=== PATIENT | female | born 1975 | race Two or more races ===

== ENCOUNTER 2017-04-21 14:28 | Emergency (ER) | payer MEDICAID, OTHER ==
[2017-04-21 14:40] VITALS: TEMP 97.5
[2017-04-21] MEDS ORDERED: ONDANSETRON 4 MG/2 ML VIAL IVP ONE (14:44)
[2017-04-21] MEDS ORDERED: NS 1,000 ML IV ONE ×3 (15:15→16:35)
--- NOTE | 2017-04-21 15:45 | EDPHY ---
H & P Stated Complaint: body aches, vomiting Time Seen by Provider: 04/21/17 15:08 HPI/ROS: 41-year-old female presents complaining of headache, nausea and vomiting. She denies abdominal pain. She also states that yesterday she had an exacerbation of her back pain that she has had ever since December of 2015. She states when she gets that pain she often will taken ibuprofen and rest. She also states that she gets headaches approximately once a month, no diagnosis of migraines. She states her only other significant past medical history as a history of anemia, tubal ligation. In the past she has been treated for her anemia with iron supplements. Review of systems As per HPI General no fever no chills no weakness, positive fatigue HEENT no eye pain no eye discharge. No eye redness, no sore throat Respiratory no cough, no shortness of breath Cardiac no chest pain, no peripheral edema GI no abdominal pain, no diarrhea, no constipation, positive nausea positive vomiting no flank pain, no hematuria, no dysuria Musculoskeletal no myalgias, no joint pain Heme no easy bruising, no easy bleeding Endo no polyuria, no polydipsia Skin no rashes, no pruritus Neuro no syncope, no dizziness, positive headaches Psych is no suicidal ideation, no homicidal ideation Source: Patient, Family Exam Limitations: No limitations - Personal History LMP (Females 10-55): 1-7 Days Ago Current Tetanus/Diphtheria Vaccine: Yes - Medical/Surgical History Hx Asthma: No Hx Chronic Respiratory Disease: No Hx Diabetes: No Hx Cardiac Disease: No Hx Renal Disease: No Hx Cirrhosis: No Hx Alcoholism: No Hx HIV/AIDS: No Hx Splenectomy or Spleen Trauma: No Other PMH: Tubal ligation, chronic back pain - Family History Significant Family History: No pertinent family hx - Social History Smoking Status: Never smoked Alcohol Use: None Drug Use: None - Physical Exam Exam: 41-year-old female alert and oriented, nontoxic appearance afebrile Atraumatic normocephalic Extraocular muscles intact, pupils round reactive to light Sclera appear pale Oropharynx negative erythema negative exudate Neck supple Lungs clear to auscultation bilaterally Heart regular rate and rhythm Abdomen nondistended, bowel sounds present, soft, mild suprapubic tenderness, no guarding no rebound no masses Extremities no cyanosis clubbing or edema Neuro alert and oriented, cranial nerves intact, no sensory or motor deficits Gait intact, coordination intact Constitutional: Initial Vital Signs Temperature (C) 36.4 C 04/21/17 14:37 Heart Rate 85 04/21/17 14:37 Respiratory Rate 22 H 04/21/17 14:37 Blood Pressure 134/78 H 04/21/17 14:37 O2 Sat (%) 97 04/21/17 14:37 O2 Delivery Mode Room Air Allergies/Adverse Reactions: morphine Allergy (Verified 04/21/17 14:40) Home Medications: Medication Instructions Recorded NK [No Known Home Meds] 04/21/17 Medical Decision Making ED Course/Re-evaluation: Medical decision making and ER course Patient seen and evaluated for headache vomiting nausea and fatigue of 1 day's duration. IV established Fluids and Zofran initially given Patient has decreased headache but continues to complain of nausea Next given Reglan, Benadryl IV Also given additional IV fluids Labs obtained and sent CBC-WBC 12.9, hemoglobin 10.7 CMP within normal limits Lipase negative TSH within normal limits Differential diagnosis considered Acute gastritis, viral syndrome, migraine, anemia Patient with a past history of anemia although she does not remember her exact hemoglobin levels she says she has been treated with iron for anemia by her primary care physician. Patient's headache and nausea resolved after IV fluids and IV medication, prior to discharge Impression Anemia Gastritis Viral syndrome Plan Discharge home Zofran Up with primary care in 1-2 days Return to emergency if not improving or having worsening of symptoms - Data Points Laboratory Results: Laboratory Results 04/21/17 15:00 04/21/17 15:00 04/21/17 04/21/17 04/21/17 15:00 15:00 15:00 WBC 12.67 10^3/uL H 10^3/uL (3.80-9.50) RBC 4.09 10^6/uL L 10^6/uL (4.18-5.33) Hgb 10.7 g/dL L g/dL (12.6-16.3) Hct 32.9 % L % (38.0-47.0) MCV 80.4 fL L fL (81.5-99.8) MCH 26.2 pg L pg (27.9-34.1) MCHC 32.5 g/dL g/dL (32.4-36.7) RDW 14.5 % % (11.5-15.2) Plt Count 359 10^3/uL 10^3/uL (150-400) MPV 10.9 fL fL (8.7-11.7) Neut % (Auto) 87.5 % H % (39.3-74.2) Lymph % (Auto) 9.4 % L % (15.0-45.0) [place] % (Auto) 2.1 % L % (4.5-13.0) Eos % (Auto) 0.1 % L % (0.6-7.6) Baso % (Auto) 0.4 % % (0.3-1.7) Nucleat RBC Rel Count 0.0 % % (0.0-0.2) Absolute Neuts (auto) 11.09 10^3/uL H 10^3/uL (1.70-6.50) Absolute Lymphs (auto) 1.19 10^3/uL 10^3/uL (1.00-3.00) Absolute Monos (auto) 0.27 10^3/uL L 10^3/uL (0.30-0.80) Absolute Eos (auto) 0.01 10^3/uL L 10^3/uL (0.03-0.40) Absolute Basos (auto) 0.05 10^3/uL 10^3/uL (0.02-0.10) Absolute Nucleated RBC 0.00 10^3/uL 10^3/uL (0-0.01) Immature Gran % 0.5 % % (0.0-1.1) Immature Gran # 0.06 10^3/uL 10^3/uL (0.00-0.10) PT 13.3 SEC SEC (12.0-15.0) INR 1.04 (0.83-1.16) APTT 28.0 SEC SEC (23.0-38.0) Sodium 138 mEq/L mEq/L (134-144) Potassium 4.1 mEq/L mEq/L (3.5-5.2) Chloride 102 mEq/L mEq/L (97-110) Carbon Dioxide 21 mEq/l L mEq/l (22-31) Anion Gap 15 mEq/L mEq/L (8-16) BUN 11 mg/dL mg/dL (7-23) Creatinine 0.4 mg/dL L mg/dL (0.6-1.0) Estimated GFR > 60 Glucose 127 mg/dL H mg/dL (70-100) Calcium 9.0 mg/dL mg/dL (8.5-10.4) Total Bilirubin 0.6 mg/dL mg/dL (0.1-1.4) AST 28 IU/L IU/L (14-46) ALT 35 IU/L IU/L (9-52) Alkaline Phosphatase 76 IU/L IU/L (38-126) Total Protein 7.6 g/dL g/dL (6.3-8.2) Albumin 4.0 g/dL g/dL (3.5-5.0) Lipase 55.0 IU/L IU/L (23-300) TSH 0.871 uIU/mL uIU/mL (0.465-4.680) Medications Given: Discontinued Medications Diphenhydramine HCl (Benadryl Injection) 25 mg IVP EDNOW ONE Stop: 04/21/17 16:01 Last Admin: 04/21/17 16:10 Dose: 25 mg Sodium Chloride (Ns) 1,000 mls @ 0 mls/hr IV ONCE ONE PRN Reason: Wide Open Stop: 04/21/17 15:16 Last Admin: 04/21/17 15:05 Dose: 1,000 mls Sodium Chloride (Ns) 1,000 mls @ 0 mls/hr IV ONCE ONE PRN Reason: Wide Open Stop: 04/21/17 16:00 Last Admin: 04/21/17 15:50 Dose: 1,000 mls Sodium Chloride (Ns) 1,000 mls @ 0 mls/hr IV ONCE ONE PRN Reason: Wide Open Stop: 04/21/17 16:36 Last Admin: 04/21/17 16:35 Dose: 1,000 mls Metoclopramide HCl (Reglan Injection) 10 mg IVP EDNOW ONE Stop: 04/21/17 16:01 Last Admin: 04/21/17 16:13 Dose: 10 mg Ondansetron HCl (Zofran) 4 mg IVP EDNOW ONE Stop: 04/21/17 14:45 Last Admin: 04/21/17 15:11 Dose: 4 mg Ondansetron HCl (Zofran Odt 4 Mg Prepack#2) 1 btl TAKEHARINIE EDNOW ONE Stop: 04/21/17 18:24 Last Admin: 04/21/17 18:38 Dose: 1 btl Departure - Departure Disposition: Home, Routine, Self-Care Clinical Impression: Headache, Nausea and vomiting, Dehydration, Anemia Condition: Good Instructions: Ondansetron (By mouth), Dehydration (ED), Acute Nausea and Vomiting (ED), Anemia (ED), General Headache (ED) Additional Instructions: Follow-up with your primary care physician in 1-2 days. Referrals: NONE *PRIMARY CARE P,. [Primary Care Provider] - As per Instructions
[2017-04-21] MEDS ORDERED: METOCLOPRAMIDE 10 MG/2 ML VIAL IVP ONE (16:00)
[2017-04-21 16:02] LABS: % IMMATURE GRANULYOCYTES 0.5 % (0.0-1.1); ABSOLUTE IMMATURE GRANULOCYTES 0.06 10^3/uL (0.00-0.10); ADD DIFF? NO; ADD MORPH? NO; ADD SCAN? NO; ATYPICAL LYMPHOCYTE FLAG 0 (0-99); FRAGMENT RBC FLAG 0 (0-99); HEMATOCRIT 32.9 % (38.0-47.0); HEMOGLOBIN 10.7 g/dL (12.6-16.3); LEFT SHIFT FLG 0 (0-99); LIPEMIA HEMOLYSIS FLAG 80 (0-99); MEAN CELL HEMOGLOBIN 26.2 pg (27.9-34.1); MEAN CELL HEMOGLOBIN CONCENTR. 32.5 g/dL (32.4-36.7); MEAN CELL VOLUME 80.4 fL (81.5-99.8); MEAN PLATELET VOLUME 10.9 fL (8.7-11.7); PLATELET CLUMPS FLAG 0 (0-99); PLATELET COUNT 359 10^3/uL (150-400); RED BLOOD CELL COUNT 4.09 10^6/uL (4.18-5.33); RED CELL DISTRIBUTION WIDTH 14.5 % (11.5-15.2)
[2017-04-21 16:07] LABS: INR 1.04 (0.83-1.16); PROTIME(PATIENT) 13.3 SEC (12.0-15.0)
[2017-04-21 16:10] LABS: ALANINE AMINOTRANSFERASE 35 IU/L (9-52); ALKALINE PHOSPHATASE 76 IU/L (38-126); ANION GAP 15 mEq/L (8-16); ASPARTATE AMINOTRANSFERASE 28 IU/L (14-46); BILIRUBIN,TOTAL 0.6 mg/dL (0.1-1.4); CARBON DIOXIDE 21 mEq/l (22-31); CHLORIDE 102 mEq/L (97-110); CREATININE 0.4 mg/dL (0.6-1.0); GLOMERULAR FILTRATION RATE > 60; GLUCOSE 127 mg/dL (70-100); POTASSIUM 4.1 mEq/L (3.5-5.2); SODIUM 138 mEq/L (134-144); TOTAL PROTEIN 7.6 g/dL (6.3-8.2)
[2017-04-21 18:22] VITALS: RESP 18
[2017-04-21] MEDS ORDERED: ONDANSETRON 4MG PREPACK#2 BTL TAKEHOME ONE (18:23)
[2017-04-21 18:25] VITALS: O2SAT 98
[2017-04-21 18:40] VITALS: BP 89/54; PULSE 92
== END 2017-04-21 18:41 | disposition home or self-care (01) ==
LOC: CED 14:28
DX: R51 Headache (principal); E86.0 Dehydration; D64.9 Anemia, unspecified
CPT/HCPCS: 80053-PO; 83690-PO; 84443-PO; 85025-PO; 85610-PO; 85730-PO; 96374; J1200; J2405; J2765